=== PATIENT | male | born 1995 | race Caucasian/White ===

== ENCOUNTER 2024-03-18 13:10 | Emergency (ER) | payer OTHER, SELFPAY ==
[2024-03-18 13:21] VITALS: BP 154/108
[2024-03-18 13:54] LABS: APTT 29.9 Sec (23.4-35.0); INR 0.96; PT 13.1 Sec (11.4-14.6)
[2024-03-18 13:55] LABS: % Basophils 0.7 % (0-2); % Eosinophils 3.3 % (0-6); % Immature Granulocytes 0.4 % (0-0.5); % Lymphocytes 26.7 % (20.5-51.1); % Monocytes 8.2 % (1.7-9.3); % Neutrophils 60.7 % (42.2-75.2); ALT (SGPT) 40 U/L (0-50); AST (SGOT) 33 U/L (17-59); Absolute Eosinophils 0.2 10^3/uL (0-0.7); Absolute Lymphocytes 1.5 10^3/uL (1.2-3.4); Absolute Monocytes 0.5 10^3/uL (0.1-0.6); Absolute Neutrophils 3.3 10^3/uL (1.4-6.5); Albumin 4.3 g/dl (3.5-5.0); Alkaline Phosphatase 74 U/L (38-126); Blood Urea Nitrogen 12 mg/dl (9-20); Calcium 9.7 mg/dl (8.4-10.2); Carbon Dioxide 26 mmol/L (22-30); Chloride 104 mmol/L (98-107); Glucose 103 mg/dl (70-99); Hematocrit 51.8 % (39.0-52.0); Hemoglobin 17.2 g/dL (13.0-18.0); Mean Corp Hgb Conc. 33.2 g/dL (33.0-37.0); Mean Corpuscular Hgb 27.7 pg (27.0-31.0); Mean Corpuscular Volume 83.3 fL (80.0-94.0); Mean Platelet Volume 9.7 fL (7.4-10.4); Nucleated Red Blood Cells % 0 % (-); Platelet Count 198 10^3/uL (130-400); Potassium 4.4 mmol/L (3.5-5.1); Red Blood Cell Count 6.22 10^6/uL (4.70-6.10); Red Cell Dist. Width 13.8 % (11.5-14.5); Sodium 139 mmol/L (135-145); Total Bilirubin 0.4 mg/dl (0.2-1.3); Total Protein 7.2 g/dl (6.3-8.2); White Blood Cell Count 5.5 10^3/uL (4.8-10.8); eGFR > 60.00
[2024-03-18 14:46] VITALS: BP 134/89
[2024-03-18] MEDS: MAALOX 30 ML PO (15:12)
[2024-03-18] MEDS: PROTONIX 40 MG PO (15:12)
--- NOTE | 2024-03-18 15:50 | ED.GENMED ---
History of Present Illness
General
Chief Complaint: Vomiting Blood
Time Seen by Provider: 03/18/24 14:39
History of Present Illness
History of Present Illness:
28-year-old male with history of GERD presenting to the emergency department with episode of vomiting and concern of blood with vomit. Patient reports that he ate relatively late this morning, around 2 AM. He woke up this morning with epigastric
discomfort, vomited. After forceful vomiting, had seen blood in his vomit. Symptoms have since resolved. No some mild epigastric discomfort. He is not on any blood thinners. Denies ever having this in the past. Does admit to drinking alcohol,
however socially. Denies seeing any blood in his stool. Denies chest pain or difficulty breathing. Denies additional acute medical complaint
Phy Exam
Physical Exam
Physical Exam:
General: Well-appearing, no clinical signs of dehydration, nontoxic and in no acute distress
HEENT: protecting airway
Neck: appears supple
CV: Normal heart rate, regular rhythm
Resp: No accessory muscle use, no increased work of breathing, lungs clear to auscultation bilaterally
Abd: Soft and non-distended, no tenderness to palpation
Extremities: No deformities, no swelling
Neuro: alert, no focal neurologic deficit
: deferred
Rectal: deferred
Psych: Normal affect
Skin: Intact
Course
Orders/Labs/Results
Orders:
Orders
03/18/24 13:29
Type And Crossmatch [Type+Screen] Urgent
Complete Blood Count/With Diff Urgent
Comprehensive Metabolic Panel Urgent
Lipase Urgent
Comment: ADD ON
PTT Urgent
Prothrombin Time Urgent
03/18/24 14:52
Add On- LAB Urgent
Tests Added?: lipase
03/18/24 15:06
Mag Hydrox/Al Hydrox/Simeth [Maalox] 30 ml PO NOW STA
Pantoprazole [Protonix] 40 mg PO NOW STA
03/18/24 15:09
0.9% Sodium Chloride 1000 ml [Nss] 1,000 ml IV BOLUS
Abnormal Lab Results
03/18/24
13:29
RBC 6.22 H 10^6/uL
(4.70-6.10)
Creatinine 1.5 H mg/dL
(0.7-1.3)
Glucose 103 H mg/dl
(70-99)
03/18/24 13:29
03/18/24 13:29
Vital Signs
Initial and Last Documented VS:
Initial Vital Signs
Temp Pulse Resp BP Pulse Ox
98 F 105 16 154/108 98
03/18/24 13:21 03/18/24 13:21 03/18/24 13:21 03/18/24 13:21 03/18/24 13:21
Last Documented Vital Signs
Temp Pulse Resp BP Pulse Ox
98 F 81 16 134/89 96
03/18/24 13:21 03/18/24 14:46 03/18/24 14:46 03/18/24 14:46 03/18/24 14:46
MDM/Problems Addressed
MDM/Problems Addressed:
28-year-old male presenting to the emergency department with episode of vomiting. Vital signs on arrival are normal.
On exam patient is well-appearing, no acute distress or discomfort. Preceding symptoms suspected to be gastric in pathology, either peptic ulcer disease versus Saida-Sams tail from forceful vomiting. Patient notes social alcohol with lower
suspicion for variceal bleeding. Notes that blood was seen after episode of food-consistency vomiting. No tenderness to the abdomen without concern for serious intra-abdominal process or infection. Plan for screening laboratory analysis. Will
administer pantoprazole and Maalox.
15:00 - Labs unremarkable, normal hemoglobin. At this time feel stable for discharge, however advise close interval follow-up with GI, may warrant endoscopy in the future. Otherwise advised use of daily antacid. Will prescribe. Return
precautions were communicated including any additional episodes of hematemesis. Patient verbalized understanding
*Critical Care Note
Total Time (30-74mins, 75-104mins- exclusive of procedures): Not Applicable
ED Attending Note
-
Portions of this chart may have been created with voice recognition software.� Occasional wrong word or��sound alike� substitutions may have occurred due to the inherent limitations of voice recognition software.
Discharge Plan
Departure
Referrals:
NONE,* [Family Provider] -
Interventions
Interventions:
*Risk Screen - Suicide Last Done: 03/18/24 13:21
*General Assessment Last Done: 03/18/24 13:21
*Neglect/Abuse Screening Last Done: 03/18/24 13:21
ED- Fall Risk Assessment Last Done: 03/18/24 15:15
*ED COVID-19 Vaccine History Last Done: 03/18/24 14:46
[facility]-Csoibusmre Assessment Last Done: 03/18/24 14:46
ED- Cardiac Assessment Last Done: 03/18/24 14:46
ED- Pulmonary Assessment Last Done: 03/18/24 15:15
Discharge Date and Time
Print Language: JAPANESE
[2024-03-18 15:56] LABS: Lipase 166 U/L (23-300)
[2024-03-18 16:05] VITALS: BP 130/78
== END 2024-03-18 16:11 | disposition home or self-care (01) ==
LOC: EMR 13:10
PROVIDERS: EMERGENCY PHYSICIAN Student in an Organized Health Care Education/Training Program
DX: K21.9 Gastro-esophageal reflux disease without esophagitis (principal); K29.70 Gastritis, unspecified, without bleeding
CPT/HCPCS: 99283; 80053; 83690; 85025; 85610; 85730; 86850; 86900; 86901; 99282

== ENCOUNTER 2024-06-22 06:22 | Day surgery (SDC) | payer OTHER, SELFPAY | END 2024-06-22 12:14 | disposition home or self-care (01) | LOC: GI 06:22 | PROVIDERS: ATTENDING PHYSICIAN Student in an Organized Health Care Education/Training Program; FAMILY PHYSICIAN Family Medicine | DX: R10.13 Epigastric pain (principal); K22.10 Ulcer of esophagus without bleeding; K44.9 Diaphragmatic hernia without obstruction or gangrene; K92.0 Hematemesis; Z53.8 Procedure and treatment not carried out for other reasons | CPT/HCPCS: 43235 ==